=== PATIENT | male | born 1965 | race African-American/Black ===

== ENCOUNTER → 2018-01-13 | Outpatient (CLI) | payer OTHER | END | disposition home or self-care (01) | LOC: CDC 11:08 | DX: Z01.810 Encounter for preprocedural cardiovascular examination (principal); D17.0 Benign lipomatous neoplasm of skin and subcutaneous tissue of head, face and neck; R94.31 Abnormal electrocardiogram [ECG] [EKG] | CPT/HCPCS: 93000 ==

== ENCOUNTER 2018-01-26 09:10 | Day surgery (SDC) | payer OTHER ==
[~2018-01-26] VITALS: Ht 165.1 cm; Wt 81.7 kg
[~2018-01-26 09:10] MED LIST: GERD MED PO; LOTREL 5/101 CAPSULE PO; NEURONTIN600 MG PO; VIBRAMYCIN100 MG PO
[2018-01-26] MEDS ORDERED: OMEPRAZOLE40 M1 PO ×2 (09:35→09:36)
[2018-01-26 09:37] VITALS: BP 146/108
[2018-01-26] MEDS ORDERED: HYDROCODON-ACE1 EAC7 PO (15:02)
[2018-01-26 16:00] VITALS: BP 136/91
[2018-01-26 17:17] VITALS: BP 142/88
== END 2018-01-26 17:50 | disposition home or self-care (01) ==
LOC: SDC 09:10
PROC: 0KB20ZZ Excision of Right Neck Muscle, Open Approach (ICD-10-PCS; principal; 2018-01-26)
DX: D17.0 Benign lipomatous neoplasm of skin and subcutaneous tissue of head, face and neck (principal); F17.200 Nicotine dependence, unspecified, uncomplicated; I10 Essential (primary) hypertension
CPT/HCPCS: 88304; J0690; J1100; J1170; J1885; J2405; J3010

== ENCOUNTER → 2018-01-29 | Outpatient (CLI) | payer OTHER ==
[~2018-01-29] MED LIST changes: +HYDROCODON-ACE1 EAC7 PO; +OMEPRAZOLE40 M1 PO
== END | disposition home or self-care (01) ==
LOC: RAD 10:59
DX: Z98.890 Other specified postprocedural states (principal); R93.8 Abnormal findings on diagnostic imaging of other specified body structures; T14.8XXA Other injury of unspecified body region, initial encounter
CPT/HCPCS: 70491; 71260